=== PATIENT | female | born 1995 | race African-American/Black ===

== ENCOUNTER 2017-02-22 09:46 | Emergency (ER) | payer MEDICAID, OTHER ==
[~2017-02-22] VITALS: Ht 175.3 cm; Wt 47.5 kg
[2017-02-22 09:49] VITALS: Ht 175.3 cm; Wt 47.5 kg
[2017-02-22] MEDS ORDERED: ACETAMINOPHEN 500 MG TAB PO STA (10:14)
--- NOTE | 2017-02-22 11:03 | RADRPT ---
PROCEDURE: XR Chest AP portable CLINICAL INDICATION: Chest wall pain TECHNIQUE: An AP portable radiograph of the chest was submitted. COMPARISON: None. FINDINGS: Support Hardware: None Cardiovascular: The cardiovascular silhouette appears unremarkable. Lung Kc: The lung kc are mildly hyperexpanded but clear. Pleural Spaces: No pneumothorax or pleural effusion is identified. Osseous Structures: There is a mild dextroscoliotic curve to the thoracic spine. Soft Tissues: The soft tissues appear unremarkable. IMPRESSION: 1. Mild pulmonary hyperexpansion with the lung kc and pleural spaces clear. 2. Mild dextroscoliotic curve to the thoracic spine. Physician John Date Time Electronically viewed and signed by Physician John on 02/22/2017 11:02 /
[2017-02-22] MEDS ORDERED: IBUP400T22 PO (11:12)
--- NOTE | 2017-02-22 11:15 | ERD ---
ER Documentation Chief Complaint Chief Complaint Complains of SOB unknown if she has asthma HPI This 21-year-old female presents with anterior chest wall pain starting the last day. It may have started after awkward movement of her chest. She denies any significant trauma. She denies any recent URIs or fevers or shortness of breath. She denies any vomiting or abdominal pain. The pain is in the left lower costochondral junction area. ROS All systems reviewed and are negative except as per history of present illness. Medications Home Meds Active Scripts Ibuprofen* (Motrin*) 400 Mg Tab, 400 MG PO Q6, #20 TAB Prov:MICHAEL JUSTICE MD 02/22/17 Allergies Allergies: Coded Allergies: No Known Allergy (Unverified , 02/22/17) PMhx/Soc History of Surgery: No Anesthesia Reaction: No Hx Neurological Disorder: No Hx Respiratory Disorders: No Hx Cardiac Disorders: No Hx Psychiatric Problems: No Hx Miscellaneous Medical Probl: No Hx Alcohol Use: No Hx Substance Use: No Hx Tobacco Use: Yes Smoking Status: Never smoker Physical Exam Vitals Vital Signs Date Time Temp Pulse Resp B/P Pulse Ox O2 Delivery O2 Flow Rate FiO2 02/22/17 09:49 98.1 64 20 146/88 100 Physical Exam Const: [] Alert, [id number]. Head: Atraumatic Eyes: Normal Conjunctiva ENT: Normal External Ears, Nose and Mouth. TMs and oropharynx normal. Neck: Full range of motion..~ No meningismus. Resp: Clear to auscultation bilaterally tenderness in the left costochondral junction and xiphoid area. No appreciable abdominal tenderness. No rebound. Cardio: Regular rate and rhythm, no murmurs Abd: Soft, non tender, non distended. Normal bowel sounds Skin: No petechiae or rashes Back: No midline or flank tenderness Ext: No cyanosis, or edema Neur: Awake and alert Psych: Normal Mood and Affect Results 24 hrs Current Medications Medications (Trade) Dose Ordered Sig/Cortney Route PRN Reason Start Time Stop Time Status Last Admin Dose Admin Acetaminophen (Tylenol Tab) 500 mg ONCE STAT PO 02/22/17 10:14 02/22/17 10:16 DC 02/22/17 10:23 Procedures/MDM EKG: Rate/Rhythm: [Normal Sinus Rhythm] equals 54 QRS, ST, T-waves: [No changes consistent w/ acute ischemia] Impression: [No evidence of ischemia or arrhythmia] depression-sinus bradycardia, otherwise no acute findings on EKG Was given Tylenol for pain. Chest X-ray 1V Interpreted by me: Soft Tissue: No acute abnormalities Bones: No acute abnormalities Mediastinum/Cardiac Silhouette/Lungs: [No acute abnormalities] patient have normal 1 view chest x-ray Presents with left-sided chest wall pain after awkward movement which is reproducible today. The likely has costochondritis. She will treated with ibuprofen, further observation at home, primary care follow-up and return precautions. The patient was stable with no new complaints during the ER course. Clinically, there is no current evidence to suggest meningitis, sepsis, acute abdomen, pneumonia, acute coronary syndrome, pulmonary embolism, or any other emergent condition appearing to require further evaluation or hospitalization. The patient should certainly return for any new or worsening symptoms per the aftercare instructions. They should otherwise follow-up with her primary care doctor for reevaluation this week. Departure Diagnosis: Primary Impression: Chest wall pain Condition: Stable Patient Instructions: Chest Wall Pain, Costochondritis, Chest Wall Strain Additional Instructions: She is normal today. Likely costochondritis or chest wall strain. Recheck for fevers, blood, new worsening symptoms with primary care doctor. MICHAEL JUSTICE MD Feb 22, 2017 11:15
== END 2017-02-22 11:19 | disposition home or self-care (01) ==
LOC: FTE 09:46
DX: R07.89 Other chest pain (principal); Z87.891 Personal history of nicotine dependence
CPT/HCPCS: 71010; 93005; Z7502; Z7610

== ENCOUNTER 2017-11-05 13:46 | Emergency (ER) | END 2017-11-05 14:35 | disposition home or self-care (01) ==